=== PATIENT | male | born 1985 | race Caucasian/White ===

== ENCOUNTER → 2021-06-29 | Day surgery (SDC) | payer OTHER ==
[~2021-06-29] VITALS: Ht 175.3 cm; Wt 83.1 kg
[~2021-06-29] MED LIST: AMLO-186 PO; IV RINGERS,LACTATED 1000ML 1,000 ML IV SCH; PROPOFOL 10 MG/ML (20ML) VIAL. IV ONE; SUMA100T3 PO
[2021-06-29 07:56] VITALS: BP 155/95
[2021-06-29 09:58] VITALS: BP 146/102
--- NOTE | 2021-06-29 15:49 | CONS ---
DATE OF CONSULTATION: 06/29/2021 REASON FOR CONSULTATION: Constipation and rectal bleeding. HISTORY OF PRESENT ILLNESS: A 35-year-old -[place] male with past medical history significant for hypertension and headaches, is seen for a colonoscopy with constipation and some rectal strain. No family history of inflammatory bowel disease, colon cancer is noted. Weight and appetite are stable. He is otherwise without additional complaints. PAST MEDICAL HISTORY: Chronic pain, rectal bleeding and headaches. ALLERGIES: None. MEDICATIONS: Include amlodipine and Imitrex. FAMILY HISTORY: Significant for diabetes in his mother and grandmother, hypertension in his father. SOCIAL HISTORY: He is a current day smoker. Social drinker. PAST SURGICAL HISTORY: Noncontributory. REVIEW OF SYSTEMS: Per records. PHYSICAL EXAMINATION: GENERAL: Reveals a well-nourished, well-developed male who is alert, cooperative, in no acute distress. VITAL SIGNS: Temperature 97.9, pulse 61, respiratory rate 16. LUNGS: Clear. CARDIOVASCULAR: Reveals an S1, S2, without S3, S4 or appreciable murmur. ABDOMEN: Soft abdomen, normal bowel sounds, without appreciable hepatosplenomegaly. EXTREMITIES: Reveals no cyanosis, clubbing or edema. IMPRESSION: Rectal bleeding, constipation, most likely is hemorrhoidal in nature, AVMs fissures, inflammatory bowel disease, . Therefore, recommend the patient proceed with colonoscopy. Risks and benefits have been previously discussed and he is willing to proceed at this time. SHAILA SALAMANCA: Irma TID: [id number]
--- NOTE | 2021-07-02 15:07 | PATHOLOGY ---
[facility] Accession Number: [id number] . 01 Material submitted: . colon - ASCENDING COLON POLYP. Modifiers: ascending . 01 Clinical history: . GI BLEED COLONOSCOPY . 02 Diagnosis: Colon biopsy, ascending colon polyp: - Tubular adenoma. . ([facility]:mm; 07/02/2021) [facility] 07/02/2021 1201 Local . 02 Comment: There is no high grade dysplasia or evidence of malignancy. . ([facility]:mml; 07/02/2021) . 02 Electronically signed: . Jc Ocampo MD, Pathologist NPI- [id number] . 01 Gross description: . The specimen is received in formalin, labeled "Fore, Tirso, ascending colon polyp". Received is a single segment of red-brown, polypoid tissue measuring 1.0 cm in greatest dimensions. The specimen is bisected and entirely submitted in cassette A1. ([facility]; 06/29/2021) NRI/NRI 06/29/20212032 Local . 02 Pathologist provided ICD-10: D12.2 . 02 CPT . 767416 Specimen Comment: A courtesy copy of this report has been sent to [phone] Specimen Comment: [id number] Specimen Comment: Report sent to / DR CALLE Specimen Comment: A duplicate report has been generated due to demographic updates. Performed at: 01 [facility] [address] [id number] MD Fan Rosen MD Phone: [phone] Performed at: 02 [facility] [address] [place], [place] [id number] MD Jc Ocampo MD Phone: [phone]
== END | disposition home or self-care (01) ==
LOC: SURG 07:34
PROVIDERS: ATTEND Internal Medicine Gastroenterology
DX: K62.5 Hemorrhage of anus and rectum (principal); K64.0 First degree hemorrhoids; K59.00 Constipation, unspecified; D12.2 Benign neoplasm of ascending colon; K63.89 Other specified diseases of intestine; I10 Essential (primary) hypertension; F41.9 Anxiety disorder, unspecified; Z87.891 Personal history of nicotine dependence; Z79.899 Other long term (current) drug therapy; Z98.890 Other specified postprocedural states; Z82.49 Family history of ischemic heart disease and other diseases of the circulatory system; Z83.3 Family history of diabetes mellitus
CPT/HCPCS: 45385; 88305; J2704